=== PATIENT | female | born 1955 | race Caucasian/White ===

== ENCOUNTER 2016-12-09 07:29 | Day surgery (SDC) | payer OTHER ==
[~2016-12-09] VITALS: Ht 154.9 cm; Wt 72.8 kg
[2016-12-09] MEDS ORDERED: MIDAZOLAM 1 MG/ML 2 ML INJ ONE ×3 (07:39→10:18)
[2016-12-09] MEDS ORDERED: FENTAnyl 50 MCG/ML VIAL ONE ×2 (07:39→10:18)
[2016-12-09] MEDS ORDERED: LISI10TA2 PO (08:37)
[2016-12-09] MEDS ORDERED: OMEP20CA16 PO (08:37)
[2016-12-09 08:42] VITALS: Ht 154.9 cm; Wt 72.8 kg
[2016-12-09 09:35] VITALS: BP 134/79; PULSE 87; RESP 18
[2016-12-09] MEDS ORDERED: LIDOCAINE 4% SOLUTION 50 ML BTL ONE (09:39)
--- NOTE | 2016-12-09 10:48 | GILP ---
DATE OF PROCEDURE: 12/09/2016 PREOPERATIVE DIAGNOSIS: Screening colonoscopy to rule out colon polyps. POSTOPERATIVE DIAGNOSES: 1. Two polyps noted one in the hepatic flexure, one in the distal ascending colon. Both were remov ed. They were benign looking. 2. Diverticulosis. 3. Internal and external hemorrhoids. DESCRIPTION OF PROCEDURE: After the informed written consent was obtained, the patient was asked to lie on the left lateral side, 3 mg Versed and 50 mcg of fentanyl was given as intravenous anesthesi a. When the patient became somnolent, the Olympus video colonoscope was introduced into the rectum and scope was advanced all the way to the cecum. A 3 mm raised polyp was noted in the hepatic flexure. This was removed with a cold biopsy forceps. This appeared to be benign and is not bleeding, is no t malignant appearance. Another 3 mm flat polyp was noted in the distal ascending colon. This was also appearing benign and not bleeding. Biopsy was done to remove the polyp. Rest of the colon val eared normal up to the cecum. Terminal ileum appeared normal. Endoscope at this time was withdrawn . On the way out, retroflexion was performed. Minimal internal hemorrhoids and minimal external he morrhoids were noted and the procedure was terminated. PLAN: Recommend wait for the pathology report and also recommend repeat colonoscopy in 5 years. Dictated By: EMANI FRANCO/NTS Conf#: [id number] DID#: [id number] CC: JEANETTE RILEY MD; EMANI PAREKH MD;*EndCC*
--- NOTE | 2016-12-09 11:06 | GILP ---
DATE OF PROCEDURE: 12/09/2016 PROCEDURE: Esophagogastroduodenoscopy. SURGEON: Valentín Falcon MD PREOPERATIVE DIAGNOSIS: A patient presenting with history of chronic heartburn, chronic abdominal d iscomfort, dyspepsia, rule out peptic ulcer disease. POSTOPERATIVE DIAGNOSES: 1. Mild reflux esophagitis. 2. Mild diffuse gastritis. 3. A 1 cm wide-based polyp noted in the antrum, biopsies were done. DESCRIPTION OF PROCEDURE: After the informed written consent was obtained, the patient was asked to lie on the left lateral side, 3 mg Versed and 50 mcg of fentanyl were given as intravenous anesthes ia. When the patient became somnolent, the Olympus video upper endoscope was introduced into the orophar ynx, then into the esophagus. Several areas of erythema were noted just above the GE junction for a bout 1 cm in length, consistent with mild reflux esophagitis, [place] classification A. Biopsie s were obtained to rule out Perez's esophagus. Scope at this time was advanced into the stomach. Stomach showed evidence of a diffuse erythema and minimal friability. A 1 cm wide-based polyp was noted in the antrum. Multiple biopsies were obtained. The duodenum appeared normal up to the end o f the third portion. At this time, scope was withdrawn to the level of the gastric cavity. Biopsy was done from the antrum, the lesser curvature and the fundus to rule out H. pylori infection. Scop e at this time was advanced as mentioned earlier on into the duodenum. Duodenum appeared normal up to the end of the third portion. Scope at this time was withdrawn and the procedure was terminated. PLAN: Recommend wait for the pathology report. Meanwhile, recommend Dexilant 60 mg if the omeprazo le does not work. Dictated By: VALENTÍN FALCON MD [place]/NTS Conf#: [id number] DID#: [id number] CC: MARYSE FOWLER; VALENTÍN FALCON MD;*End*
== END 2016-12-09 11:36 | disposition home or self-care (01) ==
LOC: GIL 07:29
PROVIDERS: ATTEND Internal Medicine Gastroenterology
DX: Z12.11 Encounter for screening for malignant neoplasm of colon (principal); K31.9 Disease of stomach and duodenum, unspecified; K21.0 Gastro-esophageal reflux disease with esophagitis; K29.60 Other gastritis without bleeding; K57.90 Diverticulosis of intestine, part unspecified, without perforation or abscess without bleeding; K64.8 Other hemorrhoids; K64.4 Residual hemorrhoidal skin tags; I10 Essential (primary) hypertension
CPT/HCPCS: 43239; 45378; 88305; 88312; 88313; J2250; J3010; Z7610